=== PATIENT | female | born 1975 | race Caucasian/White ===

== ENCOUNTER 2023-08-26 04:24 | Day surgery (SDC) | payer OTHER ==
[2023-08-21 10:54] VITALS: BMI 34.7
[2023-08-26] MEDS: ceFAZolin SODIUM 1 GM VIAL IVPB ONE ×3 (13:48→14:00)
[2023-08-26] MEDS ORDERED: MIDAZOLAM HCL 2 MG/2 ML SINGLE DOSE VIAL ONE (13:54)
[2023-08-26] MEDS ORDERED: PROPOFOL 20 ML ONE (13:56)
[2023-08-26] MEDS ORDERED: ONDANSETRON 4 MG/2 ML VIAL ONE (14:14)
[2023-08-26] MEDS ORDERED: oxyCODONE HCL 5 MG TABLET PO PRN (14:51)
[2023-08-26] MEDS ORDERED: ONDANSETRON 4 MG/2 ML VIAL IVPUSH PRN (14:51)
[2023-08-26] MEDS ORDERED: ACETAMINOPHEN 325 MG TABLET (FP) PO PRN (14:51)
[2023-08-26] MEDS: ACETAMINOPHEN 1000 MG/100 ML BAG IVPB ONE (14:54)
[2023-08-26] MEDS ORDERED: LACTATED RINGERS SOLUTION 1,000 ML IV SCH (15:00)
[2023-08-26 16:08] VITALS: PULSE 61
[2023-08-26 16:49] VITALS: RESP 16
[2023-08-26 17:53] VITALS: BP 108/68; TEMP 97.8
== END 2023-08-26 17:25 | disposition home or self-care (01) ==
LOC: JASU-SURG 04:24
PROVIDERS: ATTEND Obstetrics & Gynecology
PROC: 0UB98ZZ Excision of Uterus, Via Natural or Artificial Opening Endoscopic (ICD-10-PCS; 2023-08-26)
PROC: 0UBC8ZZ Excision of Cervix, Via Natural or Artificial Opening Endoscopic (ICD-10-PCS; principal; 2023-08-26 12:30)
DX: N92.4 Excessive bleeding in the premenopausal period (principal); N84.0 Polyp of corpus uteri; N84.1 Polyp of cervix uteri; Z80.8 Family history of malignant neoplasm of other organs or systems; E66.9 Obesity, unspecified
CPT/HCPCS: 81025; 82962; 86850; 86900; 86901; 88305-TC; 88341-TC; 88342-TC; 94760; J0131